=== PATIENT | male | born 1985 | race Hispanic/Latino ===

== ENCOUNTER 2022-03-16 11:11 | Outpatient (CLI) | payer MEDICARE ==
[2022-03-16 11:49] LABS: #Basophils 0.1 10x3/uL (0.0-0.2); #Eosinphils 0.9 10x3/uL (0.0-0.5); #Monocytes 0.4 10x3/uL (0.0-1.1); #Neutrophils 4.1 10x3/uL (1.5-8.4); %Basophils 0.8 % (0.0-2.0); %Eosinophils 10.6 % (0.0-6.0); %Lymphocytes 38.2 % (18.0-47.0); %Monocytes 4.3 % (0.0-10.0); %Neutrophils 45.7 % (40.0-75.0); Mean Corpuscular HGB CONC 33.5 g/dL (32.0-36.0); Mean Corpuscular Hemoglobin 28.9 pg (27.0-33.0); Mean Corpuscular Volume 86.2 fl (81.2-95.1); Mean Platelet Volume 9.8 fl (7.4-10.4); Platelet Count 329 10x3/uL (150-450); RBC Distribution Width 14.2 % (11.5-14.5); Red Blood Cell (RBC) Count 4.85 10x6/uL (4.32-5.72); White Blood Cell (WBC) Count 8.9 10x3/uL (3.5-10.5)
[2022-03-16 12:05] LABS: Anion Gap 12 mmol/L (10-20); BUN (Urea Nitrogen) 12 mg/dL (8.9-20.6); Calc. Creatinine Clearance 0 mL/min (70-130); Calcium 9.6 mg/dL (7.8-10.44); Carbon Dioxide 25 mmol/L (22-29); Chloride 106 mmol/L (98-107); Estimated GFR 78; Glucose 105 mg/dL (70-105); Potassium 3.8 mmol/L (3.5-5.1); Sodium 139 mmol/L (136-145)
== END 2022-03-16 11:12 | disposition home or self-care (01) ==
LOC: LABBT 11:11
PROVIDERS: ATTEND Specialist
DX: Z01.812 Encounter for preprocedural laboratory examination (principal); K60.3 Anal fistula
CPT/HCPCS: 80048; 85025

== ENCOUNTER 2022-03-21 06:17 | Day surgery (SDC) | payer MEDICARE ==
[2022-03-17 14:13] VITALS: BMI 29.9
[2022-03-21] MEDS ORDERED: Ketorolac Tromethamine 30 MG/ML VIAL ONE (07:01)
[2022-03-21] MEDS ORDERED: Acetaminophen 500 MG TAB ONE (07:01)
[2022-03-21] MEDS ORDERED: Fleet Enema 133 ML BOT PR SCH (07:45)
[2022-03-21] MEDS ORDERED: CEFAZOLIN 2 GM VIAL ONE (08:33)
[2022-03-21] MEDS ORDERED: Sodium Chloride 0.9% 100 ML ONE (08:33)
[2022-03-21] MEDS ORDERED: Bupivacaine 0.25% HCL 30 ML VIAL ONE (08:44)
[2022-03-21] MEDS ORDERED: EPINEPHrine 1 MG/ML AMP ONE (08:44)
[2022-03-21] MEDS ORDERED: fentaNYL Citrate/PF 100 MCG/2 ML SYRINGE ONE (08:52)
[2022-03-21] MEDS ORDERED: PROPOFOL 200 MG/20 ML VIAL ONE (09:02)
[2022-03-21] MEDS ORDERED: Dexamethasone 20 MG/5 ML VIAL ONE (09:02)
[2022-03-21] MEDS ORDERED: Ondansetron PF 4 MG/2 ML Vial ONE (09:02)
[2022-03-21] MEDS ORDERED: Methylene Blue 50 MG/10 ML AMPUL ONE (09:37)
== END 2022-03-21 12:00 | disposition home or self-care (01) ==
LOC: SDC 06:17
PROVIDERS: ATTEND Specialist
PROC: 0H89XZZ Division of Perineum Skin, External Approach (ICD-10-PCS; principal; 2022-03-21)
DX: K60.3 Anal fistula (principal); E78.5 Hyperlipidemia, unspecified; F70 Mild intellectual disabilities; Z79.899 Other long term (current) drug therapy
CPT/HCPCS: J0171; J0690; J1100; J1885; J2405; J2704; J3490; Q9968; S0020